=== PATIENT | female | born 1990 | race Caucasian/White ===

== ENCOUNTER 2021-10-01 21:40 | Emergency (ER) | payer OTHER, SELFPAY ==
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
[2021-10-01 22:00] VITALS: BP 139/85; PULSE 82; RESP 18; TEMP 36.6; O2SAT 99
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
[2021-10-02] MEDS: ONDANSETRON HCL ODT 4 MG TABLET PO (02:05)
[2021-10-02] MEDS: KETOROLAC (*BKC) 60 MG/2 ML VIAL IM (02:05)
== END 2021-10-02 02:23 | disposition home or self-care (01) ==
PROVIDERS: Emergency Provider General Practice
DX: S66.912A Strain of unspecified muscle, fascia and tendon at wrist and hand level, left hand, initial encounter (principal); F17.290 Nicotine dependence, other tobacco product, uncomplicated; V89.2XXA Person injured in unspecified motor-vehicle accident, traffic, initial encounter; Y92.488 Other paved roadways as the place of occurrence of the external cause
CPT/HCPCS: 73110; 96372; 99283; A9270; J1885

== ENCOUNTER 2021-10-03 17:20 | Emergency (ER) | payer OTHER, SELFPAY ==
--- NOTE | ~2021-10-03 | CT_ITS ---
EXAMINATION: CT wrist LT wo con DATE: 10/03/2021 18:37 INDICATION: Left wrist pain. TECHNIQUE: Computed tomography (CT) of the left wrist was performed without intravenous contrast. Aut omated exposure control and iterative reconstruction technique were employed. The dose-length product was 348.34 mGy-cm. COMPARISON: Left wrist CT 10/03/2021 FINDINGS: Bone alignment is normal. No fracture. 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 Joint spaces are normal. IMPRESSION: 1. No fracture. 2. Ankylosis of scaphoid and trapezium. Reviewed, dictated and finalized at location A.
[2021-10-03 17:21] VITALS: BP 130/86; PULSE 77; RESP 16; TEMP 36.6; O2SAT 100
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
== END 2021-10-03 18:58 | disposition home or self-care (01) ==
PROVIDERS: Emergency Provider Nurse Practitioner Family
DX: S60.212A Contusion of left wrist, initial encounter (principal); F41.9 Anxiety disorder, unspecified; F32.A Depression, unspecified; F17.290 Nicotine dependence, other tobacco product, uncomplicated; M24.632 Ankylosis, left wrist; V49.9XXA Car occupant (driver) (passenger) injured in unspecified traffic accident, initial encounter
CPT/HCPCS: 73200; 99199; 99281; 99283